=== PATIENT | male | born 1975 | race Caucasian/White ===

== ENCOUNTER 2018-09-12 18:01 | Emergency (ER) | payer SELFPAY ==
[2018-09-12 18:31] VITALS: BP 165/100; PULSE 99; RESP 20; TEMP 98.8; O2SAT 99
[2018-09-12] MEDS ORDERED: Hydrocodone/Acetaminophen 5 mg /300 mg Tab PO STA (19:43)
[2018-09-12] MEDS ORDERED: Hydrocodone/Acetaminophen 5 mg /300 mg Tab PO ONE (19:49)
--- NOTE | 2018-09-12 19:50 | C.PDOC ---
History Of Present Illness 42 y/o male presents to the ER for evaluation of dental pain which began in the morning. Patient states that a piece of his tooth broke off in the morning. Afterwards, patient took Ibuprofen 2 doses 800 mg and Tyelenol1 gram with some relief. He notes that he is to supposed to follow up with oral surgeon within 1 week.Denies having fever and chills. Time Seen by Provider: 09/12/18 19:22 Chief Complaint (Nursing): Dental Pain History Per: Patient History/Exam Limitations: no limitations Onset/Duration Of Symptoms: Hrs Current Symptoms Are (Timing): Still Present Severity: Moderate Past Medical History Reviewed: Historical Data, Nursing Documentation, Vital Signs Vital Signs: Last Vital Signs Temp 98.8 F 09/12/18 18:28 Pulse 99 H 09/12/18 18:28 Resp 20 09/12/18 18:28 BP 165/100 H 09/12/18 18:28 Pulse Ox 99 09/12/18 18:28 Primary Care Provider: Non [facility] Provider, - Medical History PMH: Hypercholesterolemia Other Surgeries: Hx of surgeries Family History: States: No Known Family Hx - Social History Hx Alcohol Use: Yes Hx Substance Use: No Review Of Systems Constitutional: Negative for: Fever, Chills ENT: Positive for: Mouth Pain Physical Exam - Physical Exam Appears: Non-toxic, No Acute Distress Skin: Normal Color, Warm, Dry Head: Atraumatic, Normacephalic Eye(s): bilateral: Normal Inspection Nose: Normal Oral Mucosa: Moist Teeth: Other (multiple decayed sockets with missing teeth to right upper molar, some wiring from bridge) Gingiva: No Swelling, Other (no drainage) Neurological/Psych: Oriented x3, Normal Speech ED Course And Treatment O2 Sat by Pulse Oximetry: 99 (RA) Pulse Ox Interpretation: Normal Medical Decision Making Medical Decision Making: Plan: --Vicodin PO there does not appear to be a dental abscess at this time. Disposition Counseled Patient/Family Regarding: Diagnosis, Need For Followup, Rx Given - Disposition Disposition: HOME/ ROUTINE Disposition Time: 19:51 Condition: STABLE Prescriptions: Hydrocodone/Acetaminophen [Hydrocodone-Acetamin 5-325 mg] 1 each PO TID PRN #12 tablet PRN Reason: Pain, Severe (8-10) Instructions: Dental Pain (DC) Forms: [employer] (Mongolian), General Discharge Instructions - Clinical Impression Clinical Impression: Dental caries, Pain, dental - PA / MICROBIOLOGY LAB MANAGER / Resident Statement MD/DO has reviewed & agrees with the documentation as recorded. - Scribe Statement The provider has reviewed the documentation as recorded by the Scribe Braden Ulloa Provider Attestation All medical record entries made by the Scribe were at my direction and personally dictated by me. I have reviewed the chart and agree that the record accurately reflects my personal performance of the history, physical exam, medical decision making, and the department course for this patient. I have also personally directed, reviewed, and agree with the discharge instructions and disposition.
== END 2018-09-12 19:57 | disposition home or self-care (01) ==
LOC: C.ER 18:01
DX: K02.9 Dental caries, unspecified (principal); E78.00 Pure hypercholesterolemia, unspecified